=== PATIENT | male | born 1955 | race Caucasian/White ===

== ENCOUNTER 2017-12-15 11:46 | Day surgery (SDC) | payer OTHER ==
[2017-12-15] MEDS ORDERED: NS 1,000 ML IV ONE (11:47)
[2017-12-15] MEDS ORDERED: DIAZEPAM 5 MG TAB PO ONE (11:47)
[2017-12-15] MEDS ORDERED: ASPIRIN EC 325 MG TAB PO ONE (11:47)
[2017-12-15] MEDS ORDERED: diphenhydrAMINE 25 MG CAP PO ONE ×2 (11:47→12:10)
[2017-12-15] MEDS ORDERED: FAMOTIDINE 20 MG TAB PO ONE (11:47)
[2017-12-15] MEDS ORDERED: FAMOTIDINE 20 MG TAB ONE (12:10)
[2017-12-15] MEDS ORDERED: DIAZEPAM 5 MG TAB ONE (12:11)
[2017-12-15 12:21] LABS: PLATELET COUNT 144 10^3/uL (150-400)
[2017-12-15] MEDS ORDERED: HEPARIN 10,000 UNIT/10 ML MDV (1,000 UNIT/ML) ONE (12:26)
[2017-12-15] MEDS ORDERED: fentaNYL 100 MCG/2 ML INJ ONE ×2 (12:26→13:41)
[2017-12-15] MEDS ORDERED: LIDOCAINE 1% 300 MG/30 ML SDV ONE (12:26)
[2017-12-15] MEDS ORDERED: VERAPAMIL 5 MG/2 ML VIAL ONE (12:26)
[2017-12-15] MEDS ORDERED: MIDAZOLAM 2 MG/2 ML VIAL ONE ×2 (12:26→13:41)
[2017-12-15] MEDS ORDERED: IOPAMIDOL (ISOVUE-370) 150 ML BTL IV ONE (12:27)
[2017-12-15 12:28] LABS: INR 1.05 (0.83-1.16); PROTIME(PATIENT) 13.9 SEC (12.0-15.0)
--- NOTE | 2017-12-15 13:04 | PDPROPOC ---
Sedation Plan of Care Sedation Plan of Care: vital signs stable, mental status noted, patient educated of risks, benefits, alternatives, patient can tolerate sedation ASA Classification: ASA 1 Planned drugs: fentanyl, midazolam Mallampati Score: Class 1 Mallampati Reference Image: Patient passed 3-3-2 rule?: Yes
--- NOTE | 2017-12-15 13:04 | PDHPUP ---
History & Physical Update H&P update statement: This history and physical update is based on an assessment of the patient which was completed after admission or registration (within 24 hours), but prior to the surgery/procedure. H&P update: H&P reviewed & patient examined, no change in patient's condition since H&P completed
[2017-12-15] MEDS ORDERED: ATROPINE SULFATE 1 MG/10 ML SYR IVP PRN (14:43)
[2017-12-15] MEDS ORDERED: ONDANSETRON 4 MG/2 ML VIAL IVP PRN (14:43)
[2017-12-15] MEDS ORDERED: HYDROCODONE/APAP 5/325 TAB PO PRN (14:43)
--- NOTE | 2017-12-15 14:47 | PDDXCAT ---
Diagnostic Cath Note - . Date: 12/15/17 Router Operator: Paramjit Indication: other (Chest pain and risk factors for CAD.) - Procedure Access: right wrist Procedure: left heart catheterization, coronary angiography, left ventriculogram - Materials Left Heart Cath materials: JL3.5, JL5.0, JR4.0, pigtail - Findings-Left Heart Catheterization LM: Separate ostia for LAD and Circumflex. LAD: Angiographically normal. LCX: Angiographically normal. RCA: The mid-RCA has a focal 10-20% lesion. EDP: 8 mmHg LVEF: 60% Wall motion: Normal. Complications: None Estimated blood loss: <50ml Assessment: 1) Minimal, early coronary atherosclerosis. 2) Normal LV systolic function. Plan: Good secondary prevention with appropriate medications and heart healthy behaviors.
== END 2017-12-15 17:47 | disposition home or self-care (01) ==
LOC: FCATH 11:46
PROVIDERS: ATTEND Internal Medicine Interventional Cardiology
PROC: B2151ZZ Fluoroscopy of Left Heart using Low Osmolar Contrast (ICD-10-PCS; principal; 2017-12-15)
PROC: 4A023N7 Measurement of Cardiac Sampling and Pressure, Left Heart, Percutaneous Approach (ICD-10-PCS; principal; 2017-12-15)
PROC: B2111ZZ Fluoroscopy of Multiple Coronary Arteries using Low Osmolar Contrast (ICD-10-PCS; principal; 2017-12-15)
DX: I25.10 Atherosclerotic heart disease of native coronary artery without angina pectoris (principal)
CPT/HCPCS: 93458; C1769; J1644; J2250; J3010; Q9967